=== PATIENT | female | born 1965 | race Caucasian/White ===

== ENCOUNTER 2025-04-24 21:47 | Inpatient (IN) | payer BC ==
[~2025-04-24] VITALS: Ht 162.6 cm; Wt 83.9 kg
[2025-04-24] MEDS ORDERED: SODIUM CHLORIDE 0.9% 1000ML 1,000 ML ONE (22:42)
[2025-04-24] MEDS ORDERED: CEFTRIAXONE 2 GM in SODIUM CHLORIDE 0.9% 100 ML IV ONE (22:45)
[2025-04-24] MEDS: ACETAMINOPHEN 325 MG TAB PO ONE (22:48)
[2025-04-24] MEDS: SODIUM CHLORIDE 0.9% 1000ML 1,000 ML IV ONE (22:49)
[2025-04-24 22:59] LABS: BASOPHILS % 0.7 % (0.0-1.0); HEMATOCRIT 37.2 % (34.2-44.1); LYMPHOCYTES # (AUTO) 0.4 (1.0-3.2); MEAN CORPUSCULAR HEMOGLOBIN 30.2 pg (28-32); MEAN CORPUSCULAR HGB CONC 34.9 g/dL (31-35); MEAN CORPUSCULAR VOLUME 86.3 fL (81-99); MONOCYTES # (AUTO) 0.2 (0.2-0.8); MONOCYTES % 6.7 % (4.4-11.3); NEUTROPHILS # (AUTO) 2.2 (2.1-6.9); NEUTROPHILS % 78.6 % (38.7-80.0); PLATELET COUNT 91 x10e3/uL (140-360); RED BLOOD COUNT 4.31 x10e6/uL (3.6-5.1); WHITE BLOOD COUNT 2.85 x10e3/uL (4.8-10.8)
[2025-04-24 23:12] LABS: PROTHROMBIN TIME 14.1 seconds (11.9-14.5)
[2025-04-24 23:13] LABS: PARTIAL THROMBOPLASTIN TIME 30.9 seconds (23.8-35.5)
[2025-04-24 23:17] LABS: ALBUMIN 3.5 g/dL (3.5-5.0); ALBUMIN/GLOBULIN RATIO 0.9 (0.8-2.0); ANION GAP 14.2 mmol/L (8-16); BILIRUBIN,TOTAL 0.8 mg/dL (0.2-1.2); CALCIUM 8.9 mg/dL (8.4-10.2); CREATININE, SERUM 0.93 mg/dL (0.57-1.11); TOTAL PROTEIN 7.2 g/dL (6.5-8.1)
[2025-04-24 23:20] LABS: POTASSIUM 3.2 mmol/L (3.5-5.1)
[2025-04-24 23:21] LABS: CORONAVIRUS COVID-19 AG NEGATIVE (NEGATIVE); INFLUENZA A AG NEGATIVE (NEGATIVE); INFLUENZA B AG NEGATIVE (NEGATIVE)
[2025-04-24 23:23] LABS: BILIRUBIN,URINE SMALL (NEGATIVE); CLARITY,URINE CLEAR (CLEAR); COLOR,URINE YELLOW (YELLOW); GLUCOSE, URINE NEGATIVE (NEGATIVE); KETONES,URINE NEGATIVE (NEGATIVE); LEUKOCYTE ESTERASE ,URINE NEGATIVE (NEGATIVE); NITRITE,URINE NEGATIVE (NEGATIVE); PH,URINE 5.5 (5 - 7); PROTEIN,URINE DIPSTICK >=300 (NEGATIVE); URINE UROBILINOGEN 1 mg/dL (0.2 - 1)
[2025-04-24 23:24] LABS: BACTERIA,URINE MODERATE /HPF; RBC,URINE 0-5 /HPF (0-5)
[2025-04-24 23:25] LABS: AMORPHOUS SEDIMENT,URINE FEW; EPITHELIAL CELLS,URINE FEW /LPF
[2025-04-25] VITALS (9 sets, daily range): BP systolic 106–136; BP diastolic 55–82; PULSE 60–69; RESP 16–22; TEMP 98.1–102.8; O2SAT 93–100
[2025-04-25] MEDS ORDERED: SODIUM CHLORIDE FLUSH 10 ML SYR INJ PRN (00:45)
[2025-04-25] MEDS ORDERED: DEXTROSE 50% SYRINGE 50 ML IV PRN (00:45)
[2025-04-25] MEDS: ONDANSETRON HCL INJ 2MG/ML 2ML 2 MG/ML VIAL IV PRN (01:40)
[2025-04-25 02:28] LABS: TROPONIN I 0.018 ng/mL (0-0.300)
[2025-04-25] MEDS: ACETAMINOPHEN 325 MG TAB PO PRN (04:54)
[2025-04-25] MEDS: INSULIN REGULAR, HUMAN 100 UNIT/1 ML SQ SCH (07:30)
[2025-04-25] MEDS ORDERED: ESCITALOPRAM OX20 MG PO (07:51)
[2025-04-25] MEDS ORDERED: ROSUVASTATIN CAL5 MG PO (07:51)
[2025-04-25] MEDS ORDERED: VALSARTAN80 MG PO (07:51)
[2025-04-25] MEDS ORDERED: OMEPRAZOLE40 MG PO (07:51)
[2025-04-25] MEDS ORDERED: MULTI-VITAMIN1 EACH PO (07:52)
[2025-04-25] MEDS: SODIUM CHLORIDE 0.9% 1000ML 1,000 ML IV ONE (09:05)
[2025-04-25 17:10] LABS: TROPONIN I 0.03 ng/mL (0-0.300)
[2025-04-25] MEDS: PANTOPRAZOLE SOD 40 MG TABEC PO SCH (18:22)
[2025-04-25] MEDS: SODIUM CHLORIDE 0.9% 1000ML 1,000 ML IV SCH (18:22)
[2025-04-25] MEDS: IBUPROFEN 400 MG TAB PO PRN (23:39)
[2025-04-26] VITALS (9 sets, daily range): BP systolic 93–142; BP diastolic 54–82; PULSE 55–95; RESP 18–19; TEMP 97.3–102; O2SAT 93–99
[2025-04-26 07:17] LABS: BASOPHILS % 0.6 % (0.0-1.0); HEMATOCRIT 30.2 % (34.2-44.1); HEMOGLOBIN 10.3 g/dL (12.0-16.0); LYMPHOCYTES # (AUTO) 0.7 (1.0-3.2); LYMPHOCYTES % 21.4 % (18.0-39.1); MEAN CORPUSCULAR HGB CONC 34.1 g/dL (31-35); MONOCYTES # (AUTO) 0.1 (0.2-0.8); NEUTROPHILS # (AUTO) 2.6 (2.1-6.9); NEUTROPHILS % 73.7 % (38.7-80.0); PLATELET COUNT 77 x10e3/uL (140-360); RED BLOOD COUNT 3.43 x10e6/uL (3.6-5.1); RED CELL DISTRIBUTION WIDTH 12.2 % (11.7-14.4); WHITE BLOOD COUNT 3.46 x10e3/uL (4.8-10.8)
[2025-04-26 07:40] LABS: ALBUMIN 2.8 g/dL (3.5-5.0); ALBUMIN/GLOBULIN RATIO 0.9 (0.8-2.0); ANION GAP 10.4 mmol/L (8-16); BILIRUBIN,TOTAL 0.5 mg/dL (0.2-1.2); CALCIUM 8.4 mg/dL (8.4-10.2); CREATININE, SERUM 0.72 mg/dL (0.57-1.11); TOTAL PROTEIN 5.8 g/dL (6.5-8.1)
[2025-04-26 07:41] LABS: POTASSIUM 3.4 mmol/L (3.5-5.1)
[2025-04-26 07:46] LABS: TROPONIN I 0.022 ng/mL (0-0.300)
[2025-04-26] MEDS: MULTIVITAMINS/MINERALS TAB PO SCH (09:13)
[2025-04-26] MEDS: ESCITALOPRAM OXALATE 10 MG TAB PO SCH (09:13)
[2025-04-26 11:06] LABS: BAND NEUTROPHILS % (MANUAL) 1 %; EOSINOPHILS % (MANUAL) 1 % (0-7); LYMPHOCYTES % (MANUAL) 22 % (19-48); MONOCYTES % (MANUAL) 2 % (3.4-9.0); NEUTROPHILS % (MANUAL) 73 % (40-74); REACTIVE LYMPHOCYTES 1
[2025-04-26 11:07] LABS: PLATELET ESTIMATE MODERATELY DECREASED; PLATELET MORPHOLOGY COMMENT NORMAL
[2025-04-26] MEDS: ACETAMINOPHEN 325 MG TAB PO PRN (11:50)
[2025-04-26] MEDS: LIDOCAINE 4% PATCH TP SCH (12:33)
[2025-04-26 15:57] LABS: HIV 1&2 AB SCREEN NON-REACTIVE (NONREACTIVE); HIV- 1 P24 AG SCREEN NON-REACTIVE (NONREACTIVE)
[2025-04-26 20:11] LABS: FERRITIN 1428.86 ng/mL (4.63-204.00)
[2025-04-26] MEDS ORDERED: HYDRALAZINE HCL 20 MG/ML VIAL IV PRN (21:30)
[2025-04-27] VITALS (9 sets, daily range): BP systolic 117–152; BP diastolic 58–77; PULSE 52–78; RESP 17–20; TEMP 98.6–103; O2SAT 92–100
[2025-04-27] MEDS: SODIUM CHLORIDE 0.9% 1000ML 1,000 ML IV SCH (00:14)
[2025-04-27 05:59] LABS: BASOPHILS % 0.3 % (0.0-1.0); HEMATOCRIT 28.3 % (34.2-44.1); HEMOGLOBIN 9.7 g/dL (12.0-16.0); LYMPHOCYTES # (AUTO) 0.7 (1.0-3.2); LYMPHOCYTES % 19.6 % (18.0-39.1); MEAN CORPUSCULAR HEMOGLOBIN 29.7 pg (28-32); MEAN CORPUSCULAR HGB CONC 34.3 g/dL (31-35); MEAN CORPUSCULAR VOLUME 86.5 fL (81-99); MONOCYTES # (AUTO) 0.2 (0.2-0.8); MONOCYTES % 4.6 % (4.4-11.3); NEUTROPHILS # (AUTO) 2.8 (2.1-6.9); NEUTROPHILS % 75.2 % (38.7-80.0); PLATELET COUNT 76 x10e3/uL (140-360); RED BLOOD COUNT 3.27 x10e6/uL (3.6-5.1); RED CELL DISTRIBUTION WIDTH 12.1 % (11.7-14.4); WHITE BLOOD COUNT 3.68 x10e3/uL (4.8-10.8)
[2025-04-27 06:16] LABS: ALBUMIN 2.8 g/dL (3.5-5.0); ANION GAP 12.1 mmol/L (8-16); BILIRUBIN,TOTAL 0.4 mg/dL (0.2-1.2); CALCIUM 8.2 mg/dL (8.4-10.2); CREATININE, SERUM 0.7 mg/dL (0.57-1.11); MAGNESIUM 1.9 MG/DL (1.3-2.1); PHOSPHORUS 2.2 MG/DL (2.3-4.7); TOTAL PROTEIN 5.7 g/dL (6.5-8.1)
[2025-04-27 06:18] LABS: POTASSIUM 3.1 mmol/L (3.5-5.1)
[2025-04-27 06:52] LABS: CHOL/HDL RATIO 4.6 (3.0-3.6)
[2025-04-27 07:24] LABS: FREE T4 (FREE THYROXINE) 0.88 ng/dL (0.8-1.8); THYROID STIMULATING HORMONE 1.779 uIU/mL (0.350-4.940)
[2025-04-27 10:53] LABS: LYMPHOCYTES % (MANUAL) 17 % (19-48); MONOCYTES % (MANUAL) 6 % (3.4-9.0); NEUTROPHILS % (MANUAL) 75 % (40-74); PLATELET ESTIMATE SLIGHTLY DECREASED; PLATELET MORPHOLOGY COMMENT NORMAL; REACTIVE LYMPHOCYTES 2
[2025-04-27] MEDS ORDERED: POTASSIUM PHOSPHATE 15 MM in SODIUM CHLORIDE 0.9% 250ML 250 ML IV SCH (11:00)
[2025-04-27] MEDS: POTASSIUM CHLORIDE 20 MEQ TAB CR PO ONE (11:03)
[2025-04-27] MEDS ORDERED: IOPAMIDOL 370 MG/ML 100 ML INFUS..BTL INJ ONE (20:25)
[2025-04-27] MEDS: ALPRAZOLAM 0.5 MG TAB PO PRN (22:29)
[2025-04-28] VITALS (9 sets, daily range): BP systolic 124–167; BP diastolic 55–75; PULSE 60–76; RESP 18–20; TEMP 98–103; O2SAT 87–100
[2025-04-28 06:29] LABS: BASOPHILS % 0.4 % (0.0-1.0); EOSINOPHILS % 0.2 % (0.0-6.0); LYMPHOCYTES # (AUTO) 0.8 (1.0-3.2); LYMPHOCYTES % 14.3 % (18.0-39.1); MEAN CORPUSCULAR HEMOGLOBIN 30.2 pg (28-32); MEAN CORPUSCULAR HGB CONC 34.5 g/dL (31-35); MEAN CORPUSCULAR VOLUME 87.6 fL (81-99); MONOCYTES # (AUTO) 0.4 (0.2-0.8); MONOCYTES % 6.8 % (4.4-11.3); NEUTROPHILS # (AUTO) 4.4 (2.1-6.9); NEUTROPHILS % 77.8 % (38.7-80.0); PLATELET COUNT 108 x10e3/uL (140-360); RED BLOOD COUNT 3.31 x10e6/uL (3.6-5.1); RED CELL DISTRIBUTION WIDTH 12.3 % (11.7-14.4); WHITE BLOOD COUNT 5.59 x10e3/uL (4.8-10.8)
[2025-04-28 06:53] LABS: ANION GAP 13.1 mmol/L (8-16); CALCIUM 8.4 mg/dL (8.4-10.2); CREATININE, SERUM 0.66 mg/dL (0.57-1.11); PHOSPHORUS 2.7 MG/DL (2.3-4.7)
[2025-04-28 06:55] LABS: POTASSIUM 3.1 mmol/L (3.5-5.1)
[2025-04-28] MEDS ORDERED: ALBUTEROL/IPRATROPIUM 3 ML NEB NEB PRN (07:30)
[2025-04-28] MEDS: POTASSIUM CHLORIDE 10MEQ EA PO ONE (08:27)
[2025-04-28] MEDS ORDERED: XANAX0.25 MG PO (11:27)
[2025-04-28] MEDS ORDERED: ACETAMIN/BUTALBITAL/CAFFEINE TAB PO PRN (21:15)
[2025-04-29] VITALS: BP 144/70; PULSE 62; RESP 18; TEMP 99.9; O2SAT 98
[2025-04-29 04:00] VITALS: BP 156/64; PULSE 70; RESP 18; TEMP 102.7; O2SAT 100
[2025-04-29 06:28] LABS: BASOPHILS % 0.3 % (0.0-1.0); EOSINOPHILS % 0.2 % (0.0-6.0); HEMATOCRIT 26.1 % (34.2-44.1); LYMPHOCYTES # (AUTO) 0.8 (1.0-3.2); LYMPHOCYTES % 12.5 % (18.0-39.1); MEAN CORPUSCULAR HEMOGLOBIN 29.9 pg (28-32); MEAN CORPUSCULAR HGB CONC 34.5 g/dL (31-35); MEAN CORPUSCULAR VOLUME 86.7 fL (81-99); MONOCYTES # (AUTO) 0.3 (0.2-0.8); MONOCYTES % 4.8 % (4.4-11.3); NEUTROPHILS # (AUTO) 5.4 (2.1-6.9); NEUTROPHILS % 81.7 % (38.7-80.0); PLATELET COUNT 146 x10e3/uL (140-360); RED BLOOD COUNT 3.01 x10e6/uL (3.6-5.1); RED CELL DISTRIBUTION WIDTH 12.5 % (11.7-14.4); WHITE BLOOD COUNT 6.64 x10e3/uL (4.8-10.8)
[2025-04-29 06:59] LABS: ANION GAP 13.9 mmol/L (8-16); CALCIUM 8.1 mg/dL (8.4-10.2); CREATININE, SERUM 0.63 mg/dL (0.57-1.11); MAGNESIUM 1.9 MG/DL (1.3-2.1)
[2025-04-29 07:06] LABS: POTASSIUM 2.9 mmol/L (3.5-5.1)
[2025-04-29 08:15] VITALS: BP 133/61; PULSE 69; RESP 19; TEMP 99.3; O2SAT 96
[2025-04-29 08:25] VITALS: PULSE 56; RESP 18; O2SAT 93
[2025-04-29 08:44] VITALS: BP 133/61; PULSE 69; RESP 19; TEMP 99.3; O2SAT 96
[2025-04-29] MEDS: ENOXAPARIN SOD INJ 40 MG/0.4 ML SYR SC SCH (09:00)
[2025-04-29] MEDS: POTASSIUM CHLORIDE 10MEQ EA PO SCH (09:20)
[2025-04-29] MEDS: CRESTOR 10MG PO SCH (09:21)
[2025-04-29] MEDS: VALSARTAN 80 MG TAB PO SCH (09:21)
[2025-04-29 10:22] LABS: HAPTOGLOBIN 175 mg/dL (37-355)
[2025-04-29 12:33] VITALS: BP 140/67; PULSE 52; RESP 19; TEMP 98; O2SAT 93
[2025-04-29] MEDS: ALPRAZOLAM 0.25 MG TAB PO SCH (14:00)
[2025-04-29] MEDS ORDERED: LEVOFLOXACIN250 MG PO (15:51)
[2025-04-29] MEDS ORDERED: LIDOCAINE1 EACH TP (15:51)
[2025-04-29] MEDS ORDERED: ACETAMINOPHEN325 M1 PO (15:51)
[2025-04-29] MEDS ORDERED: ONDANSETRON ODT4 MG PO (15:51)
[2025-04-29] MEDS ORDERED: IBU400 MG PO (15:51)
[2025-04-30 08:35] LABS: HEPATITIS A ANTIBODY IGM (P) Negative; HEPATITIS B CORE IGM (P) Negative; HEPATITIS B SURFACE AG (P) Negative; HEPATITIS C ANTIBODY Non Reactive
[2025-05-01 09:56] LABS: MYCOPLASMA PNEUMO IGG <100 U/mL (0-99); MYCOPLASMA PNEUMO IGM <770 U/mL (0-769)
[2025-05-05 06:41] LABS: TOXOPLASMA IGG ANTIBODY <3.0; TOXOPLASMA IGM ANTIBODY <3.0
== END 2025-04-29 17:50 | disposition home or self-care (01) | DRG 871 ==
LOC: ER 22:40 → ERHOLD 04-25 02:01 → MED/SURG3 04-25 11:59 → OBSVTOIN 04-26 13:02
PROVIDERS: ADMIT Internal Medicine; ATTEND Internal Medicine
DX: A41.9 Sepsis, unspecified organism (principal); J15.9 Unspecified bacterial pneumonia; D61.818 Other pancytopenia; J98.11 Atelectasis; J90 Pleural effusion, not elsewhere classified; N39.0 Urinary tract infection, site not specified; E83.39 Other disorders of phosphorus metabolism; E86.0 Dehydration; R19.7 Diarrhea, unspecified; R19.5 Other fecal abnormalities; E87.6 Hypokalemia; D50.9 Iron deficiency anemia, unspecified; R31.29 Other microscopic hematuria; K64.9 Unspecified hemorrhoids; I10 Essential (primary) hypertension; E11.69 Type 2 diabetes mellitus with other specified complication; E78.5 Hyperlipidemia, unspecified; K21.9 Gastro-esophageal reflux disease without esophagitis; G47.33 Obstructive sleep apnea (adult) (pediatric); M19.91 Primary osteoarthritis, unspecified site; F41.9 Anxiety disorder, unspecified; Z11.52 Encounter for screening for COVID-19; Z98.84 Bariatric surgery status; Z79.899 Other long term (current) drug therapy
CPT/HCPCS: 36415; 71045; 71260; 74177; 80048; 80053; 80061; 81001; 82550; 82607; 82728; 82746; 82948; 83010; 83036; 83540; 83605; 83615; 83630; 83735; 83993; 84100; 84439; 84443; 84466; 84484; 85025; 85045; 85610; 85730; 86738; 86777; 86778; 87040; 87045; 87086; 87177; 87328; 87390; 93005; 94799; 99284; G0378; G0433; G0435; J0696; J1650; J2405; J2470; J7030; J7050; Q9967